=== PATIENT | male | born 1970 | race Caucasian/White ===

== ENCOUNTER 2018-09-29 11:06 | Day surgery (SDC) | payer OTHER ==
[2018-09-21 15:41] LABS: PRE OP PROTIME 9.7 SECONDS (9.0-12.0)
[2018-09-21 15:46] LABS: ALBUMIN/GLOBULIN RATIO 1.2 (1.1-1.5); ALKALINE PHOSPHATASE 73 IU/L (46-116); BLOOD UREA NITROGEN 8 MG/DL (7-18); BUN/CREATININE RATIO 8.5 (5.4-32.0); CALCIUM 8.3 MG/DL (8.5-10.1); CHLORIDE 97 MMOL/L (99-107); CREATININE 0.94 MG/DL (0.60-1.10); PRE OP ANION GAP 8 (8-16); PRE OP AST 70 U/L (10-37); PRE OP BILIRUB, TOTAL 0.4 MG/DL (0.0-1.0); PRE OP GLUCOSE 95 MG/DL (70-104); PRE OP SODIUM 133 MMOL/L (135-145); TOTAL CARBON DIOXIDE 28.2 MMOL/L (24-32); TOTAL PROTEIN 7.3 G/DL (6.4-8.2); eGFR 87 ML/MIN
[2018-09-21 15:49] LABS: PRE OP ALT 102 U/L (30-65)
[2018-09-21 16:47] LABS: MEAN CORPUSCULAR HEMOGLOBIN 36.9 PG (27.0-31.0); MEAN CORPUSCULAR HGB CONC 35.8 % (33.0-36.5); MEAN CORPUSCULAR VOLUME 102.8 FL (78-98); MEAN PLATELET VOLUME 7.5 FL (7.4-10.4); PRE OP HEMATOCRIT 36.3 % (42.0-52.0); PRE OP PLATELET COUNT 215 X10'3 (140-440); RED BLOOD COUNT 3.53 X10'6 (4.70-6.10); RED CELL DISTRIBUTION WIDTH 12.7 % (11.5-14.5)
[2018-09-21 16:48] LABS: BASOPHILS % (AUTO) 0.6 % (0-1); EOSINOPHILS % (AUTO) 0.2 % (0-6); LYMPHOCYTES # (AUTO) 0.5 X10'3 (1.1-4.8); LYMPHOCYTES % (AUTO) 14.7 % (21-51); MONOCYTES # (AUTO) 0.6 X10'3 (0-0.9); MONOCYTES % (AUTO) 16.9 % (2-12); NEUTROPHILS # (AUTO) 2.6 X10'3 (1.8-7.7); NEUTROPHILS % (AUTO) 67.6 % (42-75)
[2018-09-21 17:14] LABS: TOTAL CELLS COUNTED 100
[2018-09-21 17:15] LABS: ANISOCYTOSIS FEW; PLATELET ESTIMATE NORMAL
[2018-09-21 17:17] LABS: SPHEROCYTES FEW
[~2018-09-29] VITALS: Ht 172.7 cm; Wt 78.5 kg
[2018-09-29] VITALS (13 sets, daily range): BP systolic 119–179; BP diastolic 62–117
[~2018-09-29 11:06] MED LIST: DOCUMENT DATE & TIME OF BETA-BLOCKER PO ONE; HYDR-3568 PO; LISI10TA4 PO; METO-539 PO; acetaminophen 325mg tablet PO ONE; cefazolin/dext.iso 2gm/50ml 50 ML IV ONE; famotidine 20mg tablet PO ONE; gabapentin 300mg capsule PO ONE; metoclopramide 5 mg/ml inj IV ONE; oxyCODONE SR 10mg (sust. release) tab -2 tabs (20mg) PO ONE; ringers solution, lacted 1,000 ML IV SCH; tranexamic acid inj. 1,000 MG in normal saline 100ml IV soln 90 ML IV ONE; vancomycin inj 1,500 MG in normal saline 300ml IV soln IV ONE
[2018-09-29] MEDS ORDERED: dextrose 50%-water 50ml dispensing syringe IV ONE (15:57)
[2018-09-29] MEDS ORDERED: ROPIVAcaine 0.5% (5mg/ml) 30ml vial ONE (16:19)
[2018-09-29] MEDS ORDERED: tetracaine 1% (10mg/ml) pres. free inj. ONE (16:20)
[2018-09-29] MEDS ORDERED: ROPIVAcaine inj 200 MG, epiNEPHrine inj 0.6 MG, morphine 10mg/ml inj. 5 MG in normal sa... IU ONE (17:15)
[2018-09-29] MEDS ORDERED: vancomycin 1,000mg inj ONE (17:27)
[2018-09-29] MEDS ORDERED: fentaNYL/PF 50MCG/1 ML 2ML syringe ONE (17:34)
[2018-09-29] MEDS ORDERED: midazolam 2 mg/2 ml injection ONE (17:34)
[2018-09-29] MEDS ORDERED: LIDOcaine 1%/PF 5ML 10 MG/ML VIAL ONE (17:34)
[2018-09-29] MEDS ORDERED: tranexamic acid inj. 1,000 MG in normal saline 100ml IV soln 100 ML IV ONE (17:40)
[2018-09-29] MEDS ORDERED: propofol inj 20 ML IV ONE ×3 (17:45)
[2018-09-29] MEDS ORDERED: ketorolac trometh. 30mg/ml inj. ONE (18:09)
[2018-09-29] MEDS ORDERED: Thrombin (Bovine) 5,000 unit vial TP ONE (18:13)
[2018-09-29] MEDS ORDERED: calcium chloride 100 MG/1 ML inj IV ONE (18:17)
[2018-09-29] MEDS ORDERED: ROPIVACAINE HCL/PF PAIN PUMP 400 ML IJ SCH ×2 (18:37→20:17)
[2018-09-29] MEDS ORDERED: ringers solution, lacted 1,000 ML IV SCH (18:37)
[2018-09-29] MEDS ORDERED: meperidine/PF 25mg/ml syringe IV PRN ×2 (18:40)
[2018-09-29] MEDS ORDERED: hydrALAZINE 20mg/ml inj. IV PRN (18:40)
[2018-09-29] MEDS ORDERED: diphenhydrAMINE 50 mg/ml inj IV PRN (18:40)
[2018-09-29] MEDS ORDERED: ondansetron/PF 4mg/2ml inj IV PRN ×3 (18:40→19:15)
[2018-09-29] MEDS ORDERED: morphine 4 MG/ML inj SYRINge IV PRN ×2 (18:40)
[2018-09-29] MEDS ORDERED: labetalol 20mg/4ml (5mg/ml) syringe IV PRN (18:40)
[2018-09-29] MEDS ORDERED: hydrALAZINE 20mg/ml inj. IV ONE (18:59)
[2018-09-29] MEDS ORDERED: oxyCODONE IR 5mg (immed. release) tablet PO PRN (19:15)
[2018-09-29] MEDS ORDERED: magnesium hydroxide 30ml (MOM) UD suspension PO PRN (19:15)
[2018-09-29] MEDS ORDERED: diphenhydrAMINE 25mg capsule PO PRN ×2 (19:15)
[2018-09-29] MEDS ORDERED: HYDROmorphone 1 mg/ml syringe IV PRN (19:15)
[2018-09-29] MEDS ORDERED: bisacodyl 10mg suppository rectal RC PRN (19:15)
[2018-09-29] MEDS ORDERED: acetaminophen 325mg tablet PO PRN (19:15)
[2018-09-29] MEDS: acetaminophen 325mg tablet PO SCH (20:00)
[2018-09-29] MEDS ORDERED: vancomycin/NS 1 GM ADD-VANTAGE 250 ML IV SCH (20:00)
[2018-09-29] MEDS ORDERED: HYDROcodone/acetaminophen 10/325mg tab PO PRN (20:45)
[2018-09-29] MEDS ORDERED: lisinopril 10 MG tablet PO SCH (21:00)
[2018-09-29] MEDS: gabapentin 300mg capsule PO SCH (21:00)
[2018-09-29] MEDS ORDERED: sennosides 8.6mg tablet PO SCH (21:00)
[2018-09-29] MEDS: potassium cl 20mEq in 1/2 NS 1,000 ML IV SCH (21:34)
[2018-09-30] MEDS ORDERED: TRANEXAMIC ACID IV ONE (00:15)
[2018-09-30] MEDS ORDERED: NORMAL SALINE IV ONE (00:15)
[2018-09-30] MEDS: oxyCODONE IR 5mg (immed. release) tablet PO PRN ×4 (00:21→13:51)
[2018-09-30] MEDS: ceFAZolin 1GM/D5W- ADD-VANTAGE 50 ML IV SCH ×3 (00:23→08:15)
[2018-09-30 00:30] VITALS: BP 150/84
[2018-09-30] MEDS: acetaminophen 325mg tablet PO SCH ×3 (01:53→13:01)
[2018-09-30 02:00] VITALS: BP 159/104
[2018-09-30] MEDS: HYDROmorphone 1 mg/ml syringe IV PRN ×2 (03:42→10:56)
[2018-09-30] MEDS: potassium cl 20mEq in 1/2 NS 1,000 ML IV SCH (04:36)
[2018-09-30 06:00] VITALS: BP 170/110
[2018-09-30] MEDS ORDERED: metoprolol succinate 25mg (24-HOUR) SR. Tablet PO SCH (08:00)
[2018-09-30] MEDS: gabapentin 300mg capsule PO SCH ×2 (08:00→13:01)
[2018-09-30] MEDS ORDERED: lisinopril 20mg tablet PO SCH (08:00)
[2018-09-30] MEDS ORDERED: aspirin 325mg tablet PO SCH (08:30)
[2018-09-30] MEDS ORDERED: ASPI-1 PO (09:11)
[2018-09-30] MEDS ORDERED: tranexamic acid inj. 1,000 MG in normal saline 100ml IV soln 100 ML IV ONE (09:45)
[2018-09-30 10:00] VITALS: BP 172/108
[2018-09-30] MEDS ORDERED: lisinopril 10 MG tablet PO ONE (13:55)
[2018-09-30 14:00] VITALS: BP 179/100
[2018-09-30] MEDS ORDERED: celeCOXIB 100mg capsule PO SCH (20:00)
[2018-10-01] MEDS ORDERED: acetaminophen 325mg tablet PO PRN (19:15)
== END 2018-09-30 16:00 | disposition home or self-care (01) ==
LOC: PAS 11:06 → EDSTATUS 16:30 → ORTHO 4S 19:13 → PAS 09-30 16:00
PROVIDERS: ATTEND Orthopaedic Surgery
DX: M17.11 Unilateral primary osteoarthritis, right knee (principal); I10 Essential (primary) hypertension; M21.161 Varus deformity, not elsewhere classified, right knee; G89.18 Other acute postprocedural pain; M94.261 Chondromalacia, right knee; Z96.653 Presence of artificial knee joint, bilateral; Z88.5 Allergy status to narcotic agent; Z79.891 Long term (current) use of opiate analgesic; Z72.89 Other problems related to lifestyle; Z86.2 Personal history of diseases of the blood and blood-forming organs and certain disorders involving the immune mechanism; Z79.82 Long term (current) use of aspirin; Z79.899 Other long term (current) drug therapy; Z98.890 Other specified postprocedural states
CPT/HCPCS: 27446; 36415; 64447; 80053; 82948; 85025; 85610; 85730; 87070; 93005; 97110; 97116; 97530; A6455; C1713; C1776; J0171; J0360; J0690; J1170; J1885; J2001; J2250; J2270; J2405; J2704; J2765; J2795; J3010; J3370; J7120; A7000; C1758; G0378; J7030